=== PATIENT | female | born 1960 | race African-American/Black ===

== ENCOUNTER 2018-09-12 06:28 | Inpatient (IN) | payer MEDICAID ==
[2018-09-12] VITALS (32 sets, daily range): BP systolic 84–155; BP diastolic 57–99
[~2018-09-12] VITALS: Ht 167.6 cm; Wt 49.9 kg
[~2018-09-12 06:28] MED LIST: ERYT-111 PO
[2018-09-12] MEDS ORDERED: EPINEPHRINE 1 MG in SODIUM CHLORIDE 0.9% 249 ML IV STA ×2 (06:32→06:36)
[2018-09-12] MEDS ORDERED: SODIUM CHLORIDE 0.9% 1,000 ML IV ONE (06:33)
[2018-09-12] MEDS ORDERED: HYDRALAZINE 20MG/ML VIAL IV ONE ×2 (06:45→07:00)
[2018-09-12] MEDS ORDERED: FAMOTIDINE 20MG/2ML VIAL IV ONE (06:45)
[2018-09-12] MEDS ORDERED: METHYLPREDNISOLONE SOD SUCC 125 MG/2 ML VIAL IV ONE (06:45)
[2018-09-12] MEDS ORDERED: KETAMINE HCL 50 MG/ML 10ML IV ONE (07:00)
[2018-09-12 07:08] LABS: BASOPHILS % 0.4 % (0.0-2.0); EOSINOPHILS % 1.6 % (0.0-5.0); HEMATOCRIT. 40.8 % (36.0-48.0); HEMOGLOBIN. 13.7 g/dL (12.0-16.0); LYMPHOCYTES % 54.5 % (20.0-50.0); MEAN CORPUSCULAR VOLUME 107.1 fL (81.0-99.0); MEAN PLATELET VOLUME 7.8 fl (7.4-10.4); MONOCYTES % 6.7 % (2.0-8.0); NEUTROPHILS % 36.8 % (40.0-76.0); PLATELET 224 x1000/uL (130-400); RED BLOOD CELL COUNT 3.81 mill/uL (4.2-5.4); RED CELL DISTRIBUTION WIDTH 12.8 % (11.6-14.6)
[2018-09-12 07:14] LABS: CHLORIDE 104 mEq/L (98-107)
[2018-09-12] MEDS ORDERED: NITROGLYCERIN OINT 1GM/INCH UDPKT TD ONE (07:15)
[2018-09-12] MEDS ORDERED: NITROGLYCERIN 50MG PREMIX 250 ML IV ONE (07:15)
[2018-09-12 07:16] LABS: INR 1.1; PARTIAL THROMBOPLASTIN TIME 25.5 sec (23.4-31.0); PROTHROMBIN TIME 10.7 sec (9.1-11.1)
[2018-09-12] MEDS ORDERED: SUCCINYLCHOLINE CHLORIDE 200MG/10ML IV ONE ×2 (07:18→07:30)
[2018-09-12] MEDS ORDERED: ETOMIDATE 2MG/ML 10ML VIAL IV ONE ×2 (07:18→07:30)
[2018-09-12] MEDS ORDERED: LORAZEPAM 2MG/ML CPJ IV ONE (07:30)
[2018-09-12] MEDS ORDERED: MIDAZOLAM HCL 50 MG in DEXTROSE 5% WATER 40 ML IV ONE (07:30)
[2018-09-12] MEDS ORDERED: PROPOFOL 10MG/ML 100ML 100 ML IV SCH (07:30)
[2018-09-12] MEDS ORDERED: KCL 20MEQ/100ML PREMIX 100 ML IV ONE (07:45)
[2018-09-12 08:09] LABS: BG BASE EXCESS -12.3 mmol/L (-2.0-2.0); BG FRACTION INSPIRED OXYGEN 100; BG HCO3 ACT 13.8 mmol/L (22.0-26.0); BG METHEMOGLOBIN 0.3 % (0.0-1.5); BG OXYHEMOGLOBIN 98.7 % (94.0-97.0); BG PCO2 32.3 mmHg (35.0-45.0); BG PH 7.247 (7.350-7.450); BG PO2 544.8 mmHg (75.0-100.0); BG SAMPLE SITE LEFT BRACHIAL; BG TIDAL VOLUME(mL) 400 mL; BG TOTAL HEMOGLOBIN 13.8 g/dL (12.0-18.0); BG VENT MODE VENT - A/C; BG VENT RATE 14 set
[2018-09-12] MEDS ORDERED: SODIUM BICARBONATE 8.4% 1 MEQ/ML 50ML SYR IV ONE (08:15)
[2018-09-12] MEDS ORDERED: ONDANSETRON HCL 4MG/2ML INJ IV PRN ×2 (08:45→10:15)
[2018-09-12] MEDS ORDERED: LORAZEPAM 2MG/ML CPJ IV PRN ×2 (08:45→10:15)
[2018-09-12] MEDS ORDERED: DIPHENHYDRAMINE 50MG/ML VIAL IV PRN ×2 (08:45→10:15)
[2018-09-12] MEDS ORDERED: DOCUSATE SODIUM 100MG CAPSULE PO PRN ×2 (08:45→10:15)
[2018-09-12] MEDS ORDERED: MAGNESIUM/ALUMINUM HYDROXIDE/SIMETHICONE 30ML UDC PO PRN ×2 (08:45→10:15)
[2018-09-12] MEDS ORDERED: GUAIFENESIN 200MG/10ML SUGAR FREE UDC PO PRN ×2 (08:45→10:15)
[2018-09-12] MEDS ORDERED: HYDRALAZINE 20MG/ML VIAL IV PRN (08:45)
[2018-09-12] MEDS ORDERED: IPRATROPIUM/ALBUTEROL 0.5-3(2.5)MG/3ML NEB INH PRN ×2 (08:45→10:15)
[2018-09-12] MEDS ORDERED: HYDROCODONE/ACETAMINOPHEN 10/325MG TABLET PO PRN (08:45)
[2018-09-12] MEDS ORDERED: HYDROMORPHONE HCL/PF 2MG/ML CPJ IV PRN (08:45)
[2018-09-12] MEDS ORDERED: ACETAMINOPHEN 325MG TABLET PO PRN ×2 (08:45→10:15)
[2018-09-12] MEDS ORDERED: CLONIDINE 0.1MG TABLET PO PRN ×2 (08:45→10:15)
[2018-09-12 10:10] LABS: CLARITY URINE CLEAR (CLEAR); COLOR URINE YELLOW (YELLOW); KETONES URINE NEGATIVE (NEGATIVE); LEUKOCYTE ESTERASE URINE NEGATIVE (NEGATIVE); NITRITE URINE NEGATIVE (NEGATIVE); OCCULT BLOOD URINE NEGATIVE (NEGATIVE); PH URINE 5.5 (4.5-8.0); PROTEIN URINE NEGATIVE (NEGATIVE); SPECIFIC GRAVITY URINE 1.006 (1.005-1.030); UROBILINOGEN URINE 0.2 E.U./dL (0.2-1.0)
[2018-09-12] MEDS ORDERED: NA PHOS,M-B/NA PHOS,DI-BA ENEMA 118ML PR PRN (10:15)
[2018-09-12] MEDS ORDERED: HYDROCODONE/ACETAMINOPHEN 5/325MG TABLET PO PRN (10:15)
[2018-09-12 10:30] LABS: *AMPHETAMINES SCREEN URINE NEGATIVE (NEGATIVE); *BARBITURATES SCREEN URINE PRESUMTIVE POSITIVE (NEGATIVE); *BENZODIAZEPINES SCREEN URINE NEGATIVE (NEGATIVE); *COCAINE SCREEN URINE NEGATIVE (NEGATIVE); METHADONE URINE SCREEN NEGATIVE (NEGATIVE); OPIATES URINE SCREEN NEGATIVE (NEGATIVE)
[2018-09-12] MEDS ORDERED: PROPOFOL 10MG/ML 100ML 100 ML IV PRN (10:30)
[2018-09-12 10:31] LABS: CANNABINOID URINE SCREEN PRESUMTIVE POSITIVE (NEGATIVE); PHENCYCLIDINE URINE SCREEN NEGATIVE (NEGATIVE)
[2018-09-12] MEDS ORDERED: NOREPINEPHRINE 4 MG in DEXT 5% WATER 246 ML IV PRN ×4 (11:00)
[2018-09-12] MEDS: METHYLPREDNISOLONE SOD SUCC 125 MG/2 ML VIAL IV SCH ×3 (11:08→22:28)
[2018-09-12] MEDS: DEXT 5%/0.45% NACL 1000ML 1,000 ML IV SCH (11:08)
[2018-09-12] MEDS: DIPHENHYDRAMINE 50MG/ML VIAL IV SCH ×3 (11:08→21:53)
[2018-09-12] MEDS: ENOXAPARIN 40MG/0.4ML SYR SUBCUT SCH (11:09)
[2018-09-12] MEDS ORDERED: SODIUM CHLORIDE 0.9% 500 ML IV ONE (12:00)
[2018-09-12] MEDS: SODIUM CHLORIDE 0.9% INJ 3ML FLUSH IVF SCH ×2 (13:00→21:41)
[2018-09-12] MEDS: NEBIVOLOL HCL 5 MG TABLET PO SCH ×2 (13:00→16:35)
[2018-09-12] MEDS: AMLODIPINE 5MG TABLET PO SCH ×3 (13:00→21:37)
[2018-09-12 13:02] LABS: CHLORIDE 111 mEq/L (98-107)
[2018-09-12 13:12] LABS: CREATINE KINASE 135 IU/L (26-192)
[2018-09-12 13:14] LABS: CREATINE KINASE MB FRACTION 2.7 ng/mL (0.5-3.6)
[2018-09-12] MEDS ORDERED: KCL 20MEQ/100ML PREMIX 100 ML IV NR (14:00)
[2018-09-12] MEDS: MIDAZOLAM HCL 50 MG in DEXTROSE 5% WATER 40 ML IV PRN (15:50)
[2018-09-12] MEDS: LEVETIRACETAM 500 MG in SODIUM CHLORIDE 0.9% 100 ML IV SCH ×2 (16:34→21:46)
[2018-09-12] MEDS ORDERED: INFLUENZA VIRUS VACCINE(AFLURIA) 0.5ML SYR IM ONE (18:00)
[2018-09-12] MEDS: IPRATROPIUM/ALBUTEROL 0.5-3(2.5)MG/3ML NEB HHN SCH (20:22)
[2018-09-12] MEDS: FAMOTIDINE 20MG/2ML VIAL IV SCH (21:40)
[2018-09-12 23:00] LABS: CREATINE KINASE MB FRACTION 1.7 ng/mL (0.5-3.6)
[2018-09-13] VITALS (51 sets, daily range): BP systolic 83–175; BP diastolic 35–96
[2018-09-13] MEDS ORDERED: DIGOXIN 500MCG/2ML AMP IV SCH (00:15)
[2018-09-13] MEDS: DEXT 5%/0.45% NACL 1000ML 1,000 ML IV SCH ×2 (00:20→13:10)
[2018-09-13] MEDS ORDERED: KCL 20MEQ/100ML PREMIX 100 ML IV SCH (02:00)
[2018-09-13] MEDS: IPRATROPIUM/ALBUTEROL 0.5-3(2.5)MG/3ML NEB HHN SCH ×4 (02:15→20:21)
[2018-09-13] MEDS: MIDAZOLAM HCL 50 MG in DEXTROSE 5% WATER 40 ML IV PRN ×2 (04:25→18:26)
[2018-09-13] MEDS: METHYLPREDNISOLONE SOD SUCC 125 MG/2 ML VIAL IV SCH ×4 (04:30→22:10)
[2018-09-13] MEDS: DIPHENHYDRAMINE 50MG/ML VIAL IV SCH ×4 (04:30→22:09)
[2018-09-13] MEDS: SODIUM CHLORIDE 0.9% INJ 3ML FLUSH IVF SCH ×3 (05:13→22:00)
[2018-09-13 05:24] LABS: BASOPHILS % 0.6 % (0.0-2.0); CHLORIDE 112 mEq/L (98-107); HEMATOCRIT. 34.2 % (36.0-48.0); HEMOGLOBIN. 11.4 g/dL (12.0-16.0); LYMPHOCYTES % 17.1 % (20.0-50.0); MEAN CORPUSCULAR HEMOGLOBIN 35.8 pg (28.0-32.0); MEAN CORPUSCULAR VOLUME 106.9 fL (81.0-99.0); MEAN PLATELET VOLUME 8.1 fl (7.4-10.4); MONOCYTES % 6.3 % (2.0-8.0); PLATELET 148 x1000/uL (130-400); RED BLOOD CELL COUNT 3.19 mill/uL (4.2-5.4); RED CELL DISTRIBUTION WIDTH 12.5 % (11.6-14.6)
[2018-09-13 05:39] LABS: LDL CHOLESTEROL 73 mg/dL (5-100)
[2018-09-13 05:40] LABS: HDL CHOLESTEROL 93 mg/dL (40-59)
[2018-09-13 08:38] LABS: BG BASE EXCESS -1.2 mmol/L (-2.0-2.0); BG FRACTION INSPIRED OXYGEN 40; BG HCO3 ACT 21.6 mmol/L (22.0-26.0); BG METHEMOGLOBIN 0.3 % (0.0-1.5); BG OXYHEMOGLOBIN 98.7 % (94.0-97.0); BG PCO2 30.3 mmHg (35.0-45.0); BG PO2 188.4 mmHg (75.0-100.0); BG SAMPLE SITE RIGHT BRACHIAL; BG TIDAL VOLUME(mL) 450 mL; BG TOTAL HEMOGLOBIN 12.1 g/dL (12.0-18.0); BG VENT MODE VENT - A/C; BG VENT RATE 18 set
[2018-09-13] MEDS: LEVETIRACETAM 500 MG in SODIUM CHLORIDE 0.9% 100 ML IV SCH ×2 (09:46→21:08)
[2018-09-13] MEDS: FAMOTIDINE 20MG/2ML VIAL IV SCH ×2 (09:46→21:07)
[2018-09-13] MEDS: LORATADINE 10MG TABLET NG SCH (09:47)
[2018-09-13] MEDS: AMLODIPINE 5MG TABLET PO SCH ×2 (09:47→21:08)
[2018-09-13] MEDS: ASPIRIN 81MG EC TABLET PO SCH (09:47)
[2018-09-13] MEDS: NEBIVOLOL HCL 5 MG TABLET PO SCH (09:47)
[2018-09-13] MEDS: ENOXAPARIN 40MG/0.4ML SYR SUBCUT SCH (11:52)
[2018-09-13] MEDS ORDERED: KCL 20MEQ/100ML PREMIX 100 ML IV NR (12:00)
[2018-09-13] MEDS: MORPHINE SULFATE 4 MG/ML CPJ (NOT FOR IM USE) IV PRN (15:23)
[2018-09-14] VITALS (92 sets, daily range): BP systolic 93–173; BP diastolic 37–113
[2018-09-14] MEDS: IPRATROPIUM/ALBUTEROL 0.5-3(2.5)MG/3ML NEB HHN SCH ×4 (02:22→20:29)
[2018-09-14] MEDS: METHYLPREDNISOLONE SOD SUCC 125 MG/2 ML VIAL IV SCH ×4 (04:48→22:40)
[2018-09-14] MEDS: DIPHENHYDRAMINE 50MG/ML VIAL IV SCH ×4 (04:48→21:29)
[2018-09-14] MEDS: MIDAZOLAM HCL 50 MG in DEXTROSE 5% WATER 40 ML IV PRN ×2 (04:56→14:20)
[2018-09-14] MEDS: SODIUM CHLORIDE 0.9% INJ 3ML FLUSH IVF SCH ×3 (05:55→21:30)
[2018-09-14] MEDS: AMLODIPINE 5MG TABLET PO SCH ×2 (09:38→21:30)
[2018-09-14] MEDS: FAMOTIDINE 20MG/2ML VIAL IV SCH ×2 (09:38→21:29)
[2018-09-14] MEDS: LORATADINE 10MG TABLET NG SCH (09:38)
[2018-09-14] MEDS: NEBIVOLOL HCL 5 MG TABLET PO SCH (09:38)
[2018-09-14] MEDS: ASPIRIN 81MG EC TABLET PO SCH (09:38)
[2018-09-14] MEDS: LEVETIRACETAM 500 MG in SODIUM CHLORIDE 0.9% 100 ML IV SCH ×2 (09:43→21:29)
[2018-09-14] MEDS: ENOXAPARIN 40MG/0.4ML SYR SUBCUT SCH (12:33)
[2018-09-14] MEDS: MORPHINE SULFATE 4 MG/ML CPJ (NOT FOR IM USE) IV PRN (15:30)
[2018-09-15] VITALS (54 sets, daily range): BP systolic 94–178; BP diastolic 58–100
[2018-09-15] MEDS: MIDAZOLAM HCL 50 MG in DEXTROSE 5% WATER 40 ML IV PRN ×2 (00:41→04:00)
[2018-09-15] MEDS: IPRATROPIUM/ALBUTEROL 0.5-3(2.5)MG/3ML NEB HHN SCH ×4 (02:31→20:15)
[2018-09-15] MEDS: DIPHENHYDRAMINE 50MG/ML VIAL IV SCH ×4 (04:00→22:23)
[2018-09-15] MEDS: METHYLPREDNISOLONE SOD SUCC 125 MG/2 ML VIAL IV SCH ×2 (04:00→12:03)
[2018-09-15 05:42] LABS: BASOPHILS % 0.1 % (0.0-2.0); EOSINOPHILS % 0.1 % (0.0-5.0); HEMATOCRIT. 36.3 % (36.0-48.0); HEMOGLOBIN. 12.1 g/dL (12.0-16.0); LYMPHOCYTES % 8.7 % (20.0-50.0); MEAN CORPUSCULAR HEMOGLOBIN 35.5 pg (28.0-32.0); MEAN CORPUSCULAR VOLUME 106.7 fL (81.0-99.0); MEAN PLATELET VOLUME 8.3 fl (7.4-10.4); MONOCYTES % 4.8 % (2.0-8.0); NEUTROPHILS % 86.3 % (40.0-76.0); PLATELET 162 x1000/uL (130-400); RED CELL DISTRIBUTION WIDTH 12.6 % (11.6-14.6)
[2018-09-15] MEDS: SODIUM CHLORIDE 0.9% INJ 3ML FLUSH IVF SCH ×3 (06:04→22:27)
[2018-09-15 06:34] LABS: CHLORIDE 107 mEq/L (98-107)
[2018-09-15] MEDS: LORATADINE 10MG TABLET NG SCH (08:29)
[2018-09-15] MEDS: ASPIRIN 81MG EC TABLET PO SCH (08:29)
[2018-09-15] MEDS: NEBIVOLOL HCL 5 MG TABLET PO SCH (08:29)
[2018-09-15] MEDS: FAMOTIDINE 20MG/2ML VIAL IV SCH ×2 (08:29→20:19)
[2018-09-15] MEDS ORDERED: RACEPINEPHRINE 2.25% 0.5ML NEB VIAL HHN PRN (08:30)
[2018-09-15] MEDS: AMLODIPINE 5MG TABLET PO SCH ×2 (08:30→20:19)
[2018-09-15] MEDS: LEVETIRACETAM 500 MG in SODIUM CHLORIDE 0.9% 100 ML IV SCH ×2 (10:06→20:19)
[2018-09-15] MEDS: ENOXAPARIN 40MG/0.4ML SYR SUBCUT SCH (12:03)
[2018-09-15] MEDS: METHYLPREDNISOLONE SOD SUCC 40 MG/ML VIAL IV SCH (20:20)
[2018-09-16] VITALS: BP 124/71
[2018-09-16] MEDS: IPRATROPIUM/ALBUTEROL 0.5-3(2.5)MG/3ML NEB HHN SCH ×4 (01:34→20:49)
[2018-09-16 04:00] VITALS: BP 125/75
[2018-09-16] MEDS: METHYLPREDNISOLONE SOD SUCC 40 MG/ML VIAL IV SCH ×3 (04:00→20:53)
[2018-09-16] MEDS: DIPHENHYDRAMINE 50MG/ML VIAL IV SCH ×4 (04:30→21:34)
[2018-09-16] MEDS: SODIUM CHLORIDE 0.9% INJ 3ML FLUSH IVF SCH ×3 (06:45→21:00)
[2018-09-16 08:00] VITALS: BP 152/76
[2018-09-16] MEDS: AMLODIPINE 5MG TABLET PO SCH ×4 (09:00→20:55)
[2018-09-16] MEDS: NEBIVOLOL HCL 5 MG TABLET PO SCH (09:00)
[2018-09-16] MEDS: LORATADINE 10MG TABLET NG SCH ×3 (09:00→10:25)
[2018-09-16] MEDS: ASPIRIN 81MG EC TABLET PO SCH (09:18)
[2018-09-16] MEDS: FAMOTIDINE 20MG/2ML VIAL IV SCH ×2 (09:19→20:53)
[2018-09-16] MEDS: LEVETIRACETAM 500 MG in SODIUM CHLORIDE 0.9% 100 ML IV SCH ×2 (09:19→21:23)
[2018-09-16] MEDS ORDERED: DOCUSATE SODIUM SUGAR FREE 100MG/10ML UDC GT PRN (09:30)
[2018-09-16] MEDS: ASPIRIN 81MG TABLET GT SCH ×3 (09:30→10:25)
[2018-09-16] MEDS: ENOXAPARIN 40MG/0.4ML SYR SUBCUT SCH (11:42)
[2018-09-16 12:00] VITALS: BP 162/81
[2018-09-16 16:00] VITALS: BP 144/93
[2018-09-16 20:00] VITALS: BP 151/88
[2018-09-17] VITALS: BP 121/78
[2018-09-17] MEDS: IPRATROPIUM/ALBUTEROL 0.5-3(2.5)MG/3ML NEB HHN SCH ×3 (01:09→14:22)
[2018-09-17] MEDS: METHYLPREDNISOLONE SOD SUCC 40 MG/ML VIAL IV SCH ×2 (03:24→12:44)
[2018-09-17] MEDS: DIPHENHYDRAMINE 50MG/ML VIAL IV SCH ×2 (03:30→09:51)
[2018-09-17 04:00] VITALS: BP 118/75
[2018-09-17] MEDS: SODIUM CHLORIDE 0.9% INJ 3ML FLUSH IVF SCH (05:32)
[2018-09-17 08:00] VITALS: BP 132/74
[2018-09-17] MEDS: FAMOTIDINE 20MG/2ML VIAL IV SCH (09:51)
[2018-09-17] MEDS: NEBIVOLOL HCL 5 MG TABLET PO SCH (09:51)
[2018-09-17] MEDS: LORATADINE 10MG TABLET NG SCH (09:51)
[2018-09-17] MEDS: AMLODIPINE 5MG TABLET PO SCH (09:52)
[2018-09-17] MEDS: ASPIRIN 81MG TABLET GT SCH (09:58)
[2018-09-17] MEDS: LEVETIRACETAM 500 MG in SODIUM CHLORIDE 0.9% 100 ML IV SCH (09:58)
[2018-09-17] MEDS: ENOXAPARIN 40MG/0.4ML SYR SUBCUT SCH (10:08)
[2018-09-17 13:36] VITALS: BP 150/84
== END 2018-09-17 14:39 | disposition home or self-care (01) | DRG 133 ==
LOC: ER 06:28 → MICUSO 07:44 → EDBEDREQ 07:46 → ENRESERV 08:10 → 8WST 09-16 01:29
PROVIDERS: ADMIT Internal Medicine; ATTEND Internal Medicine
PROC: 5A1945Z Respiratory Ventilation, 24-96 Consecutive Hours (ICD-10-PCS; principal; 2018-09-12)
PROC: 0BH17EZ Insertion of Endotracheal Airway into Trachea, Via Natural or Artificial Opening (ICD-10-PCS; 2018-09-12)
PROC: 02HV33Z Insertion of Infusion Device into Superior Vena Cava, Percutaneous Approach (ICD-10-PCS; 2018-09-12)
PROC: B548ZZA Ultrasonography of Superior Vena Cava, Guidance (ICD-10-PCS; 2018-09-12)
PROC: 30233K1 Transfusion of Nonautologous Frozen Plasma into Peripheral Vein, Percutaneous Approach (ICD-10-PCS; 2018-09-12)
DX: J96.00 Acute respiratory failure, unspecified whether with hypoxia or hypercapnia (principal); G93.41 Metabolic encephalopathy; R65.10 Systemic inflammatory response syndrome (SIRS) of non-infectious origin without acute organ dysfunction; E44.1 Mild protein-calorie malnutrition; J44.9 Chronic obstructive pulmonary disease, unspecified; T78.3XXA Angioneurotic edema, initial encounter; T78.2XXA Anaphylactic shock, unspecified, initial encounter; T46.4X5A Adverse effect of angiotensin-converting-enzyme inhibitors, initial encounter; E87.6 Hypokalemia; I10 Essential (primary) hypertension; F12.90 Cannabis use, unspecified, uncomplicated; G40.909 Epilepsy, unspecified, not intractable, without status epilepticus; Z88.0 Allergy status to penicillin; Z88.8 Allergy status to other drugs, medicaments and biological substances; Z79.2 Long term (current) use of antibiotics
CPT/HCPCS: 31500; 36415; 36569; 36600; 71045; 76937; 80048; 80061; 80305; 82375; 82550; 82553; 82805; 83036; 83735; 83880; 83935; 84439; 84443; 84481; 84484; 86850; 86900; 86927; 92610; 93005; 93306; 94002; 94003; 94640; 97116; 97163; 97530; 99291; C1725; J0330; J0360; J1160; J1200; J1650; J1953; J2060; J2250; J2270; J2704; J2920; J2930; J3480; J3490; J7030; J7050; J7060; J7620; P9017

== ENCOUNTER 2021-12-10 18:28 | Emergency (ER) | payer MEDICAID ==
[~2021-12-10] VITALS: Ht 170.2 cm; Wt 46.0 kg
[~2021-12-10 18:28] MED LIST changes: -ERYT-111 PO; +ERYT-139 PO
[2021-12-10 18:29] VITALS: BP 149/86
[2021-12-11] MEDS ORDERED: KETOROLAC 60MG/2ML VIAL IM ONE (02:30)
== END 2021-12-11 03:39 | disposition left against medical advice (07) ==
LOC: ER 18:28
DX: M79.674 Pain in right toe(s) (principal); G40.909 Epilepsy, unspecified, not intractable, without status epilepticus; I10 Essential (primary) hypertension; J45.909 Unspecified asthma, uncomplicated; Z88.8 Allergy status to other drugs, medicaments and biological substances; Z88.0 Allergy status to penicillin
CPT/HCPCS: 99281